=== PATIENT | female | born 1965 | race Two or more races ===

== ENCOUNTER 2025-01-20 04:04 | Emergency (ER) | payer OTHER ==
[~2025-01-20] VITALS: Ht 167.6 cm; Wt 97.1 kg
[2025-01-20] MEDS ORDERED: COZAAR25 MG PO (04:27)
[2025-01-20] MEDS ORDERED: EZETIMIBE10 MG PO (04:28)
[2025-01-20] MEDS ORDERED: SYNTHROID125 MCG PO (04:28)
[2025-01-20] MEDS ORDERED: 0.9 % SODIUM CHLORIDE 1,000 ML IV STA (04:44)
[2025-01-20] MEDS ORDERED: HYOSCYAMINE SULFATE 0.125 MG TAB.SUBL SL STA (04:44)
[2025-01-20] MEDS ORDERED: MORPHINE SULFATE 4 MG/ML VIAL IV STA (04:45)
[2025-01-20] MEDS ORDERED: FAMOtidine 10 MG/ML (4ML VIAL) IV PUSH STA (04:45)
[2025-01-20] MEDS ORDERED: KETOROLAC TROMETHAMINE 30 MG VIAL IV STA (04:46)
[2025-01-20] MEDS ORDERED: KETOROLAC TROMETHAMINE 30 MG VIAL ONE (04:48)
[2025-01-20] MEDS ORDERED: HYOSCYAMINE SULFATE 0.125 MG TAB.SUBL ONE (04:48)
[2025-01-20] MEDS ORDERED: FAMOTIDINE/PF 20 MG/2 ML VIAL ONE (04:49)
[2025-01-20] MEDS ORDERED: ONDANSETRON HCL 2 MG/ML VIAL ONE (05:04)
[2025-01-20] MEDS ORDERED: ONDANSETRON HCL 2 MG/ML VIAL IV STA (05:11)
[2025-01-20 05:29] LABS: HEMATOCRIT 40.2 % (36.0-45.00); MEAN CELL VOLUME 85.1 fL (80.00-100.00); MEAN CORPUSCULAR HEMOGLOBIN 27.5 pg (27.00-32.0); MEAN CORPUSCULAR HGB CONC 32.3 g/dl (32.0-36.0); PLATELET COUNT 220 K/uL (150-450); RED BLOOD COUNT 4.73 M/uL (4.00-6.00); RED CELL DISTRIBUTION WIDTH 13.9 % (11.5-14.5)
[2025-01-20 05:48] LABS: INR 0.94; PARTIAL THROMBOPLASTIN TIME 24.4 SECONDS (22.0-34.0); PROTHROMBIN TIME 10.3 SECONDS (9.0-11.5)
[2025-01-20 05:59] LABS: ALBUMIN 3.8 gm/dL (3.4-5.0); BILIRUBIN TOTAL 0.42 mg/dL (0.3-1.2); CALCIUM 9.4 mg/dL (8.5-10.1); CREATININE SERUM 0.85 mg/dL (0.55-1.02); GFR 67.99; GLOBULINA 3.3 G/DL (2.4-3.5); POTASSIUM 4.09 mEq/L (3.5-5.1); TOTAL PROTEIN 7.1 gm/dL (6.4-8.2)
== END 2025-01-20 10:21 | disposition home or self-care (01) ==
LOC: ER 04:05
DX: R10.84 Generalized abdominal pain (principal); K80.20 Calculus of gallbladder without cholecystitis without obstruction

== ENCOUNTER 2025-02-01 07:07 | Outpatient (CLI) | payer OTHER ==
[~2025-02-01 07:07] MED LIST: COZAAR25 MG PO; EZETIMIBE10 MG PO; SYNTHROID125 MCG PO
== END 2025-02-01 07:19 | disposition home or self-care (01) ==
LOC: MRI 07:07
PROVIDERS: ATTEND Specialist
DX: K80.70 Calculus of gallbladder and bile duct without cholecystitis without obstruction (principal); R94.5 Abnormal results of liver function studies
CPT/HCPCS: 74181

== ENCOUNTER → 2025-02-09 | Outpatient (CLI) | payer OTHER | END | disposition home or self-care (01) | LOC: RAD 08:25 | PROVIDERS: ATTEND Specialist | DX: K80.10 Calculus of gallbladder with chronic cholecystitis without obstruction (principal); E03.9 Hypothyroidism, unspecified ==

== ENCOUNTER 2025-02-21 05:05 | Day surgery (SDC) | payer OTHER ==
[2025-02-13 12:05] VITALS: BP 109/71
[~2025-02-21] VITALS: Ht 167.6 cm; Wt 97.1 kg
[~2025-02-21 05:05] MED LIST changes: +ACID REDUCER PO; +CARAFATE1 GM PO; +ECOTRIN81 MG PO; +ENBREL50 MG/1 M1 SUBCUTANEO
[2025-02-21] MEDS ORDERED: CEFAZOLIN SODIUM 1,000 MG VIAL ONE ×2 (06:55→10:27)
[2025-02-21] MEDS ORDERED: BUPIVACAINE HCL/MPF 0.5% 30ML VIAL ONE (07:14)
[2025-02-21] MEDS ORDERED: ONDANSETRON HCL 2 MG/ML VIAL ONE (09:32)
[2025-02-21] MEDS ORDERED: MORPHINE SULFATE 4 MG/ML VIAL IV ONE ×2 (09:35→10:40)
[2025-02-21] MEDS ORDERED: ONDANSETRON HCL 2 MG/ML VIAL IV ONE (09:35)
[2025-02-21] MEDS ORDERED: CEFAZOLIN SODIUM 1,000 MG VIAL IV SCH (09:45)
[2025-02-21] MEDS ORDERED: FAMOTIDINE/PF 20 MG/10 ML SYRINGE IV SCH (09:45)
[2025-02-21] MEDS ORDERED: FAMOTIDINE/PF 20 MG/2 ML VIAL ONE (10:27)
== END 2025-02-21 12:45 | disposition home or self-care (01) ==
LOC: CIR.AMB 05:05
PROVIDERS: ATTEND Specialist
DX: K80.10 Calculus of gallbladder with chronic cholecystitis without obstruction (principal)

== ENCOUNTER 2025-07-04 14:33 | Outpatient (CLI) | payer OTHER | END 2025-07-05 14:36 | disposition home or self-care (01) | LOC: MAMO-SONO 14:33 | PROVIDERS: ATTEND General Practice | DX: N60.11 Diffuse cystic mastopathy of right breast (principal); N60.12 Diffuse cystic mastopathy of left breast; N64.0 Fissure and fistula of nipple; N63.0 Unspecified lump in unspecified breast ==